=== PATIENT | female | born 1985 | race Caucasian/White ===

== ENCOUNTER 2018-11-05 00:57 | Inpatient (IN) | payer MEDICAID, SELFPAY ==
[~2018-11-05] VITALS: Ht 162.6 cm; Wt 96.5 kg
[2018-11-05 01:57] LABS: HEMATOCRIT 43.7 % (36.0-47.0); HEMOGLOBIN 14.6 g/dl (12.0-15.5); MEAN CORPUSCULAR HGB CONC 33.4 g/dl (32.0-36.5); MEAN CORPUSCULAR VOLUME 89.9 fl (80.0-96.0); PLATELET COUNT, AUTOMATED 253 10^3/uL (150-450); RED BLOOD COUNT 4.86 10^6/uL (4.00-5.40); WHITE BLOOD COUNT 11.2 10^3/uL (4.0-10.0)
[2018-11-05 02:07] LABS: HCG, SERUM QUALITATIVE NEGATIVE (NEGATIVE)
[2018-11-05 02:30] LABS: ACETAMINOPHEN LEVEL < 2.0 UG/ML (10.0-30.0); ALT/SGPT 27 U/L (12-78); BILIRUBIN,DIRECT 0.2 MG/DL (0.0-0.2); BILIRUBIN,TOTAL 0.4 MG/DL (0.2-1.0); BLOOD UREA NITROGEN 13 MG/DL (7-18); CALCIUM LEVEL 8.9 MG/DL (8.5-10.1); CARBON DIOXIDE LEVEL 26 MEQ/L (21-32); CHLORIDE LEVEL 107 MEQ/L (98-107); CREATININE FOR GFR 1.02 MG/DL (0.55-1.30); ETHYL ALCOHOL (ETHANOL) < 0.003 % (0.000-0.010); GLOMERULAR FILTRATION RATE > 60.0 (>60); GLUCOSE, FASTING 94 MG/DL (70-100); SALICYLATE LEVEL < 1.7 MG/DL (5.0-30.0); SODIUM LEVEL 142 MEQ/L (136-145); TOTAL PROTEIN 7.6 GM/DL (6.4-8.2)
[2018-11-05] MEDS ORDERED: chlorproMAZINE 25 MG TAB (Q0161) PO ONE (02:45)
[2018-11-05 02:56] LABS: AMPHETAMINES LEVEL URINE POSITIVE (NEGATIVE); BARBITURATES URINE NEGATIVE (NEGATIVE); BENZODIAZEPINES URINE NEGATIVE (NEGATIVE); CANNABINOIDS URINE POSITIVE (NEGATIVE); COCAINE METABOLITE URINE NEGATIVE (NEGATIVE); METHADONE URINE NEGATIVE (NEGATIVE); OPIATES URINE NEGATIVE (NEGATIVE); PHENCYCLIDINE URINE NEGATIVE (NEGATIVE)
[2018-11-05] MEDS ORDERED: NICOTINE 21MG/24HR 1 EA TRANSDERMAL TD SCH (09:00)
[2018-11-05] MEDS ORDERED: ACETAMINOPHEN TAB 650MG DOSE (2X325MG) PO PRN (13:00)
[2018-11-05] MEDS ORDERED: MOM 30ML SUSPENSION UDC PO PRN (13:00)
[2018-11-05] MEDS ORDERED: traZODone 50 MG TAB PO PRN (13:00)
[2018-11-05] MEDS ORDERED: MAALOX 30 ML SUSP *UDC PO PRN (13:00)
[2018-11-05] MEDS ORDERED: LORazepam 1 MG TAB PO PRN (13:00)
[2018-11-05] MEDS ORDERED: OLANZapine ORAL DISINTEGRATING TAB 5MG PO PRN (13:00)
--- NOTE | 2018-11-05 13:46 | ECGEPIP ---
Stationary ECG Study [facility] - ED Test Date: 2018-11-05 Pat Name: SHANTEL QUESADA Department: Room: - Gender: F Care Associate: alisia : 1985 Requested By: CHAVA SANCHEZ Order Number: [id number] Reading MD: Shaylee Torres Measurements Intervals [place] Rate: 84 P: 32 [place]: 138 QRS: 57 QRSD: 87 T: 31 QT: 346 QTc: 410 Interpretive Statements SINUS RHYTHM NO PRIOR FOR COMPARISON Electronically Signed On 11-05-2018 13:46:04 EST by Shaylee Torres
[2018-11-05 13:47] VITALS: BP 121/72
[2018-11-05 18:00] VITALS: BP 120/72
[2018-11-06 06:31] VITALS: BP 122/58
[2018-11-06] MEDS ORDERED: INFLUENZA QUADRIVALENT PF VACCINE 0.5ML SYRINGE (90686) IM ONE (09:00)
--- NOTE | 2018-11-06 09:28 | HPEPDOC ---
[facility] Medical History & Physical Date of Admission Nov 05, 2018 History and Physical PCP: None ATTENDING: Dr. Caro Mcknight HPI: 33 yo F admitted to [facility] for unspecified depressive disorder, being me dically examined today. The patient is anxious and agitated during exam, rapid pressured speech. The patient is noted to be poor historian. She states she was recently treated for pneumonia. She does not recall what medication she took her when she finished it. She states she is concerned regarding her thyroid function. She states she has a mild sore throat. She denies cough, sputum, fever, chills, rhinorrhea. Denies any weakness, fatigue, JOHNS, CP, SOB, cough, palpitations, abdominal pain, N/V/D or changes in bowel or bladder habits. PMHx: Anxiety Depression ADHD Self-harm History of SI Substance use Alcohol use PSHX: Denies SOCHX: Resides in: [place] Marital Status: Single Kids:3 Employment: Unemployed Tobacco use: Smoker ETOH: Denies Illicit Drugs: Recently using methamphetamine and marijuana and history of heroin IV Drug Use: Recently using methamphetamine. History of heroin however states she hasn't used in 4 months. Tattoos done unprofessionally: Denies FAMHX: Children: 3 Alive, well Unexpected deaths due to medical reasons: None. ROS: As noted in HPI, otherwise 11pt ROS of systems reviewed and remarkable only for LMP 10/15/18. PE: GEN: 33 yo F, appears stated age. Appears unkept and disheveled. No acute distress. Alert and oriented x 3. Rapid pressured speech, anxious throughout exam. HEENT: Normocephalic, atraumatic. Pupils are equal, round, and reactive to light. Extraocular movements are intact. No nystagmus appreciated. Sclera are nonicteric. Conjunctiva without injection. Nose midline. Nasal turbinates without bogginess. EACs both patent BL. TMs both visualized and lackey with good cone of light, no bulging or erythema. No facial asymmetry. Moist mucous membranes. Dentition fair. Pharynx pink and moist, no exudate. Neck supple, trachea midline. No lymphadenopathy or thyromegaly appreciated. CHEST: Regular rate and rhythm, +S1, +S2 LUNGS: Clear to auscultation bilaterally. No wheezes, rales, or rhonchi. Breathing appears symmetric and easy. Patient is speaking in full sentences. No accessory muscle use. ABD: Round, soft, non-tender, non-distended. +Bowel sounds throughout. No rebound or guarding. No costovertebral angle tenderness. EXT: Pulses 2+ bilaterally dorsalis pedis and radial. No lower extremity edema appreciated. SKIN: [place], dry, warm. Capillary refill <2sec. No rashes. No skin lesions noted. NEURO: Alert and oriented x 3. Cranial nerves III-XII are intact. No focal deficits appreciated. EKG: SINUS RHYTHM NO PRIOR FOR COMPARISON Electronically Signed On 11-05-2018 13:46:04 EST by Shaylee Torres DD: Shalyee Torres MD 11/05/18 0153 A&P: 33 yo F admitted to [facility] for unspecified depressive disorder, 1. Psych. Plan per Psychiatry. EKG on file. 2. Nicotine dependence. Patch available. 3. TSH is noted to be within normal limits. 4. Follow up. No Primary Care Provider. Will attempt to establish PCP on discharge. 5. Substance use. Management per psychiatry. Continue with MVI, Thiamine, and Folic Acid supplementation. 6. IVDU. HIV and hepatitis screening requested. 7. Leukocytosis. Patient is afebrile. Possible stress response. Recheck CBC. Chest x-ray as below. 8. Patient reports history of Recent pneumonia. Patient states she was recently treated with pneumonia. She does not recall what medication she has taken or when she completed her. She does not report any cough, sputum, fever, chills, chest discomfort, rhinorrhea. She states she has a mild sore throat. The patient is noted to be afebrile. WBC 11.2. Will recheck CBC. Check chest x-ray. Cepacol as needed. Monitor. 9. Staff member Celine WOO present throughout exam. Vital Signs Vital Signs Date Time Temp Pulse Resp B/P (MAP) Pulse Ox O2 Delivery O2 Flow Rate FiO2 11/06/18 06:31 97.9 73 16 122/58 (79) 11/05/18 13:07 98 Room Air Laboratory Data Labs 24H Item Value Date Time White Blood Count 11.2 10^3/uL H 11/05/18 0109 Red Blood Count 4.86 10^6/uL 11/05/18 0109 Hemoglobin 14.6 g/dl 11/05/189 Hematocrit 43.7 % 11/05/18108 Mean Corpuscular Volume 89.9 fl 11/05/18108 Mean Corpuscular Hemoglobin 30.0 pg 11/05/18108 Mean Corpuscular Hemoglobin Concent 33.4 g/dl 11/05/18108 Red Cell Distribution Width 13.2 % 11/05/18108 Platelet Count 253 10^3/uL 11/05/18 0109 Sodium Level 142 MEQ/L 11/05/18 0109 Potassium Level 4.0 MEQ/L 11/05/18 010 Chloride Level 107 MEQ/L 11/05/18 010 Carbon Dioxide Level 26 MEQ/L 11/05/18 010 Anion Gap 9 MEQ/L 11/05/18 010 Blood Urea Nitrogen 13 MG/DL 11/05/18 010 Creatinine 1.02 MG/DL 11/05/18108 Glomerular Filtration Rate > 60.0 11/05/18108 Fasting Glucose 94 MG/DL 11/05/18 0109 Calcium Level 8.9 MG/DL 11/05/18 0109 Total Bilirubin 0.4 MG/DL 11/05/18 0109 Direct Bilirubin 0.2 MG/DL 11/05/18 0109 Aspartate Amino Transf (AST/SGOT) 29 U/L 11/05/18 0109 Alanine Aminotransferase (ALT/SGPT) 27 U/L 11/05/18 010 Alkaline Phosphatase 76 U/L 11/05/18 0109 Total Protein 7.6 GM/DL 11/05/18 0109 Albumin 4.0 GM/DL 11/05/18 010 Albumin/Globulin Ratio 1.11 11/05/18 010 Thyroid Stimulating Hormone (TSH) 1.050 uIU/ML 11/05/18 0109 Salicylates Level < 1.7 MG/DL L 11/05/18108 Urine Opiates Screen NEGATIVE 11/05/18 0218 Urine Methadone Screen NEGATIVE 11/05/18 0218 Acetaminophen Level < 2.0 UG/ML L 11/05/18108 Urine Barbiturates Screen NEGATIVE 11/05/18 0218 Urine Phencyclidine Screen NEGATIVE 11/05/188 Urine Amphetamines Screen POSITIVE H 1/7/19 0218 Urine Benzodiazepines Screen NEGATIVE 11/05/18 0218 Urine Cocaine Metabolite Screen NEGATIVE 11/05/18 0218 Urine Cannabinoids Screen POSITIVE H 11/05/188 Ethyl Alcohol Level < 0.003 % 11/05/18 0109 Home Medications No Active Prescriptions or Reported Meds Allergies Coded Allergies: No Known Allergies (Unverified , 11/05/18) Elisa Moctezuma Nov 06, 2018 09:28
[2018-11-06] MEDS ORDERED: CEPACOL LOZENGE PO PRN (09:30)
[2018-11-06 10:12] LABS: HEMATOCRIT 41.1 % (36.0-47.0); HEMOGLOBIN 13.6 g/dl (12.0-15.5); MEAN CORPUSCULAR HEMOGLOBIN 30.4 pg (27.0-33.0); MEAN CORPUSCULAR HGB CONC 33.1 g/dl (32.0-36.5); MEAN CORPUSCULAR VOLUME 91.7 fl (80.0-96.0); PLATELET COUNT, AUTOMATED 240 10^3/uL (150-450); RED BLOOD COUNT 4.48 10^6/uL (4.00-5.40); WHITE BLOOD COUNT 7.6 10^3/uL (4.0-10.0)
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
[2018-11-06] MEDS ORDERED: FLUoxetine 10 MG CAP PO ONE (12:00)
[2018-11-06] MEDS ORDERED: diphenhydrAMINE 25 MG CAP PO PRN (12:00)
--- NOTE | 2018-11-06 13:38 | REP ---
Chest x-ray: Two views. History: Recent pneumonia . Comparison study: No comparison study . Findings: The lungs are well inflated and free of infiltrate. The pleural angles are sharp. The heart size is normal. Pulmonary vasculature is not increased. No significant bony abnormality is seen. There is a mild S-shaped thoracic scoliotic curve. Impression: Minimal thoracic curvature, otherwise negative chest x-ray. Electronically Signed by Moises Luna MD 11/06/2018 01:29 P
[2018-11-06 18:00] VITALS: BP 115/63
[2018-11-07 06:41] VITALS: BP 115/58
[2018-11-07] MEDS: FLUoxetine 10 MG CAP PO SCH (08:57)
--- NOTE | 2018-11-07 10:05 | MHIPNPDOC ---
[facility] Progress Note Progress Note DATE OF SERVICE: 11/07/18 HISTORY: Patient is a 33 -year-old , female, with no previous psych history who was admitted after her 18y/o daughter called PD stating that the pt told her she was suicidal over the phone. In the ED, pt endorsed increasing depression and feeling hopeless for several months due to multiple psychosocial stressors cuasing her to relapse on a 3 day binge of methamphetamine (smoke, snort, inject). 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 When it came time for her kids to live with her, they refused, telling her they wanted to stay with the sister which causing the pt to feel depressed and hopeless. She impulsively quite her job, gave her apt away, and had been staying with a friend until she was kicked out recently. [facility] to the weekend and asked if she wanted to get high. Stated in ED that she was first using meth to get high but then in later turned into use to kill herself. Ran out of meth Monday night. Pt seen today and states "I have a problem with depression and I told my daughter I wanted to kill myself." Pt states that she feels irritable b/c she has a headache and doesn't feel nursing is being timely enough with getting her tylenol. Denies SI/HI, hallucinations, delusions. Agreeable to starting antidepressant, prozac, today. (risks/benefits discussed) Feels safe here. VITAL SIGNS: See below. NEW TEST RESULTS: See below. CURRENT MEDICATIONS: See below. MENTAL STATUS EXAMINATION: General Appearance: disheveled, appears stated age, hospital scrubs/clothing Build: overweight Demeanor: average Eye Contact: fair Activity: average with mild anxiety and irritability Behavior: cooperative Speech: clear, spontaneous, normal volume, reg/rate,rhythm,volume Mood: less depressed and anxious, irritable Mood "better" Affect: improved range, less depressed and anxious Thought Process: logical/linear, depressed, intact Thought Content (Delusions): none reported, denies SI, HI, AVH Thought Content (Other): none reported, appropriate Thought Content (Aggressive): none reported Perception (Hallucinations): none reported Perception (Other): none reported Cognition (Impairment of): none reported Cognition(Intelligence Est.): average Oriented: Awake, Alert, Oriented times three Insight: fair Judgment: Fair Psychosis: Denies DIAGNOSES: Depression unspecified R/o substance induced depression secondary to methamphetamine methamphetamine/amphetamine use d/o ASSESSMENT:Pt seen and states that her mood is better. She has improved range with mild anxiety mostly over the prospect of having housing upon d/c "that cause me to be panicked," and is irritable at times mostly when not getting what she wants immediately like breakfast tray not being right and demanding OJ. Refused to be seen until tray fixed and ate. States she's being social on the milieu and attending groups which is beneficial. States she slept well last night. Feels she is tolerating her prozac and is waiting for beneficial. She denies insomnia, SI/HI, hallucinations, delusions. Pt feels safe here. MANAGEMENT PLAN: continue current plan. TLS housing meeting tomorrow. Medications: prozac 10mg daily benadryl 25mg q6hr prn congestion TIME SPENT: 30 minutes. Vital Signs Vital Signs Date Time Temp Pulse Resp B/P (MAP) Pulse Ox O2 Delivery O2 Flow Rate FiO2 11/07/18 06:41 98.6 58 18 115/58 (77) 11/05/18 13:07 98 Room Air Current Medications Current Medications Acetaminophen (Tylenol Tab) 650 mg Q6HP PRN PO HEADACHE or DISCOMFORT Last administered on 11/06/18at 11:50; Start 11/05/18 at 13:00 Al Hydrox/Mg Hydrox/Simethicone (Mylanta) 30 ml Q4HP PRN PO HEARTBURN/INDIGESTION; Start 11/05/18 at 13:00 Cetylpyridinium Chloride (Cepacol) 1 sujey Q2HP PRN PO SORE THROAT; Start 11/06/18 at 09:30 Diphenhydramine HCl (Benadryl) 25 mg Q4HP PRN PO CONGESTION Last administered on 11/06/18at 21:16; Start 11/06/18 at 12:00 Fluoxetine HCl (PROzac) 10 mg DAILY PO Last administered on 11/07/18at 08:57; Start 1/9/19 at 09:00 Home Med (Med Rec Complete!) ASDIRECTED XX ; Start 11/05/18 at 10:30; Stop 11/05/18 at 10:30; Status DC Lorazepam (Ativan) 2 mg Q6HP PRN PO ANXIETY/AGITATION; Start 11/05/18 at 13:00 Magnesium Hydroxide (Milk Of Magnesia) 30 ml DAILYPRN PRN PO CONSTIPATION; Start 11/05/18 at 13:00 Nicotine (Nicoderm Cq 21mg) 1 patch DAILY TD ; Start 11/05/18 at 09:00; Stop 11/05/18 at 15:46; Status DC Olanzapine (ZyPREXA ZYDIS) 10 mg Q6HP PRN PO ANXIETY/AGITATION; Start 11/05/18 at 13:00 Trazodone HCl (Desyrel) 50 mg QHSP PRN PO INSOMNIA; Start 11/05/18 at 13:00 Allergies Coded Allergies: No Known Allergies (Unverified , 11/05/18) KHUSHI ALFARO DO Nov 07, 2018 9:55 am
[2018-11-07 18:00] VITALS: BP 130/67
[2018-11-08 07:19] VITALS: BP 103/52
[2018-11-08] MEDS: FLUoxetine 10 MG CAP PO SCH (08:42)
--- NOTE | 2018-11-08 08:54 | MHIPNPDOC ---
[facility] Progress Note Progress Note DATE OF SERVICE: 11/08/18 HISTORY: Patient is a 33 -year-old , female, with no previous psych history who was admitted after her 18y/o daughter called PD stating that the pt told her she was suicidal over the phone. In the ED, pt endorsed increasing depression and feeling hopeless for several months due to multiple psychosocial stressors cuasing her to relapse on a 3 day binge of methamphetamine (smoke, snort, inject). 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 When it came time for her kids to live with her, they refused, telling her they wanted to stay with the sister which causing the pt to feel depressed and hopeless. She impulsively quite her job, gave her apt away, and had been staying with a friend until she was kicked out recently. She stated that a fri end called her prior to the weekend and asked if she wanted to get high. Stated in ED that she was first using meth to get high but then in later turned into use to kill herself. Ran out of meth Monday night. Pt seen today and states "I have a problem with depression and I told my daughter I wanted to kill myself." Pt states that she feels irritable b/c she has a headache and doesn't feel nursing is being timely enough with getting her tylenol. Denies SI/HI, hallucinations, delusions. Agreeable to starting antidepressant, prozac, today. (risks/benefits discussed) Feels safe here. VITAL SIGNS: See below. NEW TEST RESULTS: See below. CURRENT MEDICATIONS: See below. MENTAL STATUS EXAMINATION: General Appearance: clean, appears stated age, own clothing Build: overweight Demeanor: average, cooperative, pleasant Eye Contact: fair Activity: average Behavior: cooperative Speech: clear, spontaneous, normal volume, reg/rate,rhythm,volume Mood: less depressed and anxious Mood "better" Affect: improved range, less depressed and anxious Thought Process: logical/linear, less depressed, intact Thought Content (Delusions): none reported, denies SI, HI, AVH Thought Content (Other): none reported, appropriate Thought Content (Aggressive): none reported Perception (Hallucinations): none reported Perception (Other): none reported Cognition (Impairment of): none reported Cognition(Intelligence Est.): average Oriented: Awake, Alert, Oriented times three Insight: fair Judgment: Fair Psychosis: Denies DIAGNOSES: Depression unspecified R/o substance induced depression secondary to methamphetamine methamphetamine/amphetamine use d/o ASSESSMENT:Pt seen and states that her mood is alright. States she took ativan for anxiety yesterday that was helpful. Trazodone very beneficial to sleep. Spoke to pt that she should not take that regularly and pt requesting it be removed from med list. Agreeable to atarax prn anxiety. . She has improved range and anxiety. States she's being social on the milieu and attending groups which is beneficial. States she slept well last night. Feels she is tolerating her prozac and is waiting for beneficial, agreeable to increase for more therapeutic effect. She denies insomnia, SI/HI, hallucinations, delusions. Pt feels safe here. MANAGEMENT PLAN: continue current plan. TLS housing meeting tomorrow. Medications: prozac 20mg daily benadryl 25mg q6hr prn congestion atarax 25mg q6hr prn anxiety trazodone 50mg qhs prn insomnia TIME SPENT: 30 minutes. Vital Signs Vital Signs Date Time Temp Pulse Resp B/P (MAP) Pulse Ox O2 Delivery O2 Flow Rate FiO2 11/08/18 07:19 97.7 66 16 103/52 (69) 11/05/18 13:07 98 Room Air Current Medications Current Medications Acetaminophen (Tylenol Tab) 650 mg Q6HP PRN PO HEADACHE or DISCOMFORT Last administered on 11/06/18at 11:50; Start 11/05/18 at 13:00 Al Hydrox/Mg Hydrox/Simethicone (Mylanta) 30 ml Q4HP PRN PO HEARTBURN/INDIGESTION; Start 11/05/18 at 13:00 Cetylpyridinium Chloride (Cepacol) 1 sujey Q2HP PRN PO SORE THROAT; Start 11/06/18 at 09:30 Diphenhydramine HCl (Benadryl) 25 mg Q4HP PRN PO CONGESTION Last administered on 11/06/18at 21:16; Start 11/06/18 at 12:00 Fluoxetine HCl (PROzac) 10 mg DAILY PO Last administered on 11/08/18at 08:42; Start 11/07/18 at 09:00 Home Med (Med Rec Complete!) ASDIRECTED XX ; Start 11/05/18 at 10:30; Stop 11/05/18 at 10:30; Status DC Lorazepam (Ativan) 2 mg Q6HP PRN PO ANXIETY/AGITATION Last administered on at 21:08; Start 11/05/18 at 13:00 Magnesium Hydroxide (Milk Of Magnesia) 30 ml DAILYPRN PRN PO CONSTIPATION; Start 11/05/18 at 13:00 Nicotine (Nicoderm Cq 21mg) 1 patch DAILY TD ; Start 11/05/18 at 09:00; Stop 11/05/18 at 15:46; Status DC Olanzapine (ZyPREXA ZYDIS) 10 mg Q6HP PRN PO ANXIETY/AGITATION; Start 11/05/18 at 13:00 Trazodone HCl (Desyrel) 50 mg QHSP PRN PO INSOMNIA Last administered on 11/07/18at 23:01; Start 11/05/18 at 13:00 Allergies Coded Allergies: No Known Allergies (Unverified , 11/05/18) KHUSHI ALFARO DO Nov 08, 2018 8:54 am
[2018-11-08] MEDS ORDERED: FLUoxetine 10 MG CAP PO ONE (09:00)
[2018-11-08] MEDS ORDERED: FLUoxetine 20 MG CAP PO SCH (09:00)
[2018-11-08] MEDS ORDERED: hydrOXYzine 25 MG TAB PO PRN (09:00)
[2018-11-08 18:00] VITALS: BP 119/57
[2018-11-09 06:00] VITALS: BP 120/72
--- NOTE | 2018-11-09 08:43 | MHIPNPDOC ---
[facility] Progress Note Progress Note DATE OF SERVICE: 11/09/18 HISTORY: Patient is a 33 -year-old , female, with no previous psych history who was admitted after her 18y/o daughter called PD stating that the pt told her she was suicidal over the phone. In the ED, pt endorsed increasing depression and feeling hopeless for several months due to multiple psychosocial stressors cuasing her to relapse on a 3 day binge of methamphetamine (smoke, snort, inject). 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 When it came time for her kids to live with her, they refused, telling her they wanted to stay with the sister which causing the pt to feel depressed and hopeless. She impulsively quite her job, gave her apt away, and had been staying with a friend until she was kicked out recently. She stated that a fri end called her prior to the weekend and asked if she wanted to get high. Stated in ED that she was first using meth to get high but then in later turned into use to kill herself. Ran out of meth Monday night. Pt seen today and states "I have a problem with depression and I told my daughter I wanted to kill myself." Pt states that she feels irritable b/c she has a headache and doesn't feel nursing is being timely enough with getting her tylenol. Denies SI/HI, hallucinations, delusions. Agreeable to starting antidepressant, prozac, today. (risks/benefits discussed) Feels safe here. VITAL SIGNS: See below. NEW TEST RESULTS: See below. CURRENT MEDICATIONS: See below. MENTAL STATUS EXAMINATION: General Appearance: clean, appears stated age, own clothing Build: overweight Demeanor: average, cooperative, pleasant Eye Contact: fair Activity: average Behavior: cooperative Speech: clear, spontaneous, normal volume, reg/rate,rhythm,volume Mood: less depressed and anxious Mood "I slept all day yesterday" Affect: improved range, less depressed and anxious Thought Process: logical/linear, less depressed, intact Thought Content (Delusions): none reported, denies SI, HI, AVH Thought Content (Other): none reported, appropriate Thought Content (Aggressive): none reported Perception (Hallucinations): none reported Perception (Other): none reported Cognition (Impairment of): none reported Cognition(Intelligence Est.): average Oriented: Awake, Alert, Oriented times three Insight: fair Judgment: Fair Psychosis: Denies DIAGNOSES: Depression unspecified R/o substance induced depression secondary to methamphetamine methamphetamine/amphetamine use d/o ASSESSMENT:Pt seen and states that the increase in prozac was too much for her b/c it caused her to sleep most of the day yesterday. Asking to decrease dose and stay over the weekend to see how the medicine affects her. Otherwise, states she's doing well. Trazodone very beneficial to sleep. Spoke to pt that she should not take that regularly and pt requesting it be removed from med list. Atarax prn anxiety is beneficial . She has improved mood range and anxiety. States she's being social on the milieu and attending groups which is beneficial. States she slept well last night. Feels she is tolerating her p rozac and is feels it's beneficial. She denies insomnia, SI/HI, hallucinations, delusions. Pt feels safe here. MANAGEMENT PLAN: continue current plan. [facility] housing meeting tomorrow. Medications: prozac 10mg daily benadryl 25mg q6hr prn congestion atarax 25mg q6hr prn anxiety trazodone 50mg qhs prn insomnia TIME SPENT: 30 minutes. Vital Signs Vital Signs Date Time Temp Pulse Resp B/P (MAP) Pulse Ox O2 Delivery O2 Flow Rate FiO2 11/09/18 06:00 97.8 67 16 120/72 (88) 11/05/18 13:07 98 Room Air Current Medications Current Medications Acetaminophen (Tylenol Tab) 650 mg Q6HP PRN PO HEADACHE or DISCOMFORT Last administered on 11/06/18at 11:50; Start 11/05/18 at 13:00 Al Hydrox/Mg Hydrox/Simethicone (Mylanta) 30 ml Q4HP PRN PO HEARTBURN/INDIGESTION; Start 11/05/18 at 13:00 Cetylpyridinium Chloride (Cepacol) 1 sujey Q2HP PRN PO SORE THROAT; Start 11/06/18 at 09:30 Diphenhydramine HCl (Benadryl) 25 mg Q4HP PRN PO CONGESTION Last administered on 11/06/18at 21:16; Start 11/06/18 at 12:00 Fluoxetine HCl (PROzac) 10 mg DAILY PO Last administered on 11/08/18at 08:42; Start 11/07/18 at 09:00; Stop 11/08/18 at 08:47; Status DC Fluoxetine HCl (PROzac) 20 mg DAILY PO ; Start 11/08/18 at 09:00 Home Med (Med Rec Complete!) ASDIRECTED XX ; Start 11/05/18 at 10:30; Stop 11/05/18 at 10:30; Status DC Hydroxyzine HCl (Atarax) 25 mg Q6HP PRN PO ANXIETY; Start 11/08/18 at 09:00 Lorazepam (Ativan) 2 mg Q6HP PRN PO ANXIETY/AGITATION Last administered on 11/07/18at 21:08; Start 11/05/18 at 13:00; Stop 11/08/18 at 08:47; Status DC Magnesium Hydroxide (Milk Of Magnesia) 30 ml DAILYPRN PRN PO CONSTIPATION; Start 11/05/18 at 13:00 Nicotine (Nicoderm Cq 21mg) 1 patch DAILY TD ; Start 11/05/18 at 09:00; Stop 11/05/18 at 15:46; Status DC Olanzapine (ZyPREXA ZYDIS) 10 mg Q6HP PRN PO ANXIETY/AGITATION; Start 11/05/18 at 13:00 Trazodone HCl (Desyrel) 50 mg QHSP PRN PO INSOMNIA Last administered on 11/07/18at 23:01; Start 11/05/18 at 13:00 Allergies Coded Allergies: No Known Allergies (Unverified , 11/05/18) KHUSHI ALFARO DO Nov 09, 2018 8:43 am
[2018-11-09] MEDS: FLUoxetine 10 MG CAP PO SCH (08:55)
[2018-11-09 18:00] VITALS: BP 119/74
[2018-11-10 06:00] VITALS: BP 230/56
[2018-11-10] MEDS: FLUoxetine 10 MG CAP PO SCH (09:06)
[2018-11-10 18:00] VITALS: BP 112/70
[2018-11-10] MEDS: IBUPROFEN 400 MG TAB PO PRN (21:45)
[2018-11-11 06:00] VITALS: BP 91/46
[2018-11-11] MEDS: FLUoxetine 10 MG CAP PO SCH (09:04)
[2018-11-11 18:00] VITALS: BP 138/69
[2018-11-11] MEDS: IBUPROFEN 400 MG TAB PO PRN (21:22)
[2018-11-12 06:18] VITALS: BP 126/63
[2018-11-12] MEDS: FLUoxetine 10 MG CAP PO SCH (07:43)
--- NOTE | 2018-11-12 08:42 | MHDSPDOC ---
[facility] Discharge Summary Discharge Summary DATE OF ADMISSION: Nov 05, 2018 at 12:53 pm DATE OF DISCHARGE: Nov 12, 2018 DISCHARGE DIAGNOSES: Depression unspecified R/o substance induced depression secondary to methamphetamine methamphetamine/amphetamine use d/o REASON FOR ADMISSION:Patient is a 33 -year-old , female, with no previous psych history who was admitted after her 18y/o daughter called PD stating that the pt told her she was suicidal over the phone. In the ED, pt endorsed increasing depression and feeling hopeless for several months due to multiple psychosocial stressors cuasing her to relapse on a 3 day binge of methamphetamine (smoke, snort, inject). 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 When it came time for her kids to live with her, they refused, telling her they wanted to stay with the sister which causing the pt to feel depressed and hopeless. She impulsively quite her job, gave her apt away, and h ad been staying with a friend until she was kicked out recently. She stated that a friend called her prior to the weekend and asked if she wanted to get high. Stated in ED that she was first using meth to get high but then in later turned into use to kill herself. Ran out of meth Monday night. Pt seen today and states "I have a problem with depression and I told my daughter I wanted to kill myself." Pt states that she feels irritable b/c she has a headache and doesn't feel nursing is being timely enough with getting her tylenol. Denies SI/HI, hallucinations, delusions. Agreeable to starting antidepressant, prozac, today. (risks/benefits discussed) Feels safe here. CONSULTANTS INVOLVED: none TREATMENT AND PROGRESS ON THE UNIT : Pt was admitted to [facility], seen for psychiatric assessment and started on prozac 10mg daily for mood and anxiety. She was provided benadryl 25mg qghr prn congestion, vistaril 25mg q6hr prn anxiety, and trazodone 50mg qhs prn insomnia. Pt found her medications beneficial and tolerated them well. She attended groups daily during her stay. Her symptoms improved with treatment. On day of discharge she denied depression, anxiety, insomnia, SI/HI, hallucinations, delusions. She was discharged to [facility] for housing aid with follow-up at [facility].. She felt safe for discharge. DISCHARGE ASSESSMENT: Pt seen and states she's doing very well and looking forward to being discharged to [facility] for housing aid today. States she's tolerating her prozac and finding it beneficial. Denies anxiety and states atarax is helpful. Trazodone very beneficial to sleep. States she's being social on the milieu and attending groups which is beneficial. States she slept well last night. Feels she is tolerating her prozac and is feels it's beneficial. She denies depression, anxiety, insomnia, SI/HI, hallucinations, delusions. Pt feels safe here. MENTAL STATUS EXAMINATION ON DISCHARGE: General Appearance: clean, appears stated age, own clothing Build: overweight Demeanor: average, cooperative, pleasant Eye Contact: good Activity: average Behavior: cooperative Speech: clear, spontaneous, normal volume, reg/rate,rhythm,volume Mood: euthymic, full Mood "good" Affect: euthymic, full, bright Thought Process: logical/linear, less depressed, intact Thought Content (Delusions): none reported, denies SI, HI, AVH Thought Content (Other): none reported, appropriate Thought Content (Aggressive): none reported Perception (Hallucinations): none reported Perception (Other): none reported Cognition (Impairment of): none reported Cognition(Intelligence Est.): average Oriented: Awake, Alert, Oriented times three Insight: good Judgment: good Psychosis: Denies MEDICATIONS ON DISCHARGE: prozac 10mg daily atarax 25mg q6hr prn anxiety trazodone 50mg qhs prn insomnia PLAN/FOLLOWUP ARRANGEMENTS: D/c home with follow-up at [facility]. The amount of time spent in the coordination of care for this patient was approximately 30 minutes. Vital Signs/I&Os Vital Signs Date Time Temp Pulse Resp B/P (MAP) Pulse Ox O2 Delivery O2 Flow Rate FiO2 11/12/18 06:18 96.8 63 14 126/63 (84) Room Air Medications No Active Prescriptions or Reported Meds Allergies Coded Allergies: No Known Allergies (Unverified , 11/05/18) KHUSHI ALFARO DO Nov 12, 2018 8:42 am
[2018-11-12] MEDS ORDERED: PROZ10CA7 PO (08:46)
[2018-11-12] MEDS ORDERED: HYDR-3363 PO (08:46)
[2018-11-12] MEDS ORDERED: TRAZO50TA PO (08:46)
== END 2018-11-12 11:10 | disposition home or self-care (01) | DRG 754 ==
LOC: M ED 00:57 → M ED INP 12:53 → M PSY 13:35
PROVIDERS: ADMIT Psychiatry & Neurology Psychiatry; ATTEND Psychiatry & Neurology Psychiatry
DX: F32.9 Major depressive disorder, single episode, unspecified (principal); F15.14 Other stimulant abuse with stimulant-induced mood disorder; Z91.5 Personal history of self-harm; F17.290 Nicotine dependence, other tobacco product, uncomplicated

== ENCOUNTER 2018-12-09 17:49 | Emergency (ER) | payer MEDICAID, OTHER ==
[~2018-12-09] VITALS: Ht 170.2 cm; Wt 80.9 kg
[2018-12-09 17:49] VITALS: BP_DIAS 63
[~2018-12-09 17:49] MED LIST: HYDR-3363 PO; PROZ10CA7 PO; TRAZO50TA PO
[2018-12-09] MEDS ORDERED: IBUPROFEN 800 MG TAB PO ONE (20:45)
[2018-12-09] MEDS ORDERED: LIDOCAINE 5% (LIDODERM) PATCH TD ONE (20:45)
[2018-12-09] MEDS ORDERED: PERCOCET 5MG/325MG TAB PO ONE (20:45)
[2018-12-09] MEDS ORDERED: IBUP1TAB7 PO (20:50)
[2018-12-09] MEDS ORDERED: ENDO7.5T11 PO (20:50)
[2018-12-09] MEDS ORDERED: LIDO1PAD TOP (20:50)
[2018-12-09 20:54] VITALS: BP_SYST 116
[2018-12-09] MEDS ORDERED: **NOTE PATIENT COMMENT** MISC XX SCH (21:00)
== END 2018-12-09 21:00 | disposition home or self-care (01) ==
LOC: M ED 17:49
DX: M54.5 Low back pain (principal); G89.29 Other chronic pain; J45.909 Unspecified asthma, uncomplicated; K21.9 Gastro-esophageal reflux disease without esophagitis; F90.9 Attention-deficit hyperactivity disorder, unspecified type; F17.200 Nicotine dependence, unspecified, uncomplicated; Z79.899 Other long term (current) drug therapy

== ENCOUNTER → 2019-03-20 | Outpatient (CLI) | payer OTHER ==
[~2019-03-20] MED LIST changes: +ENDO7.5T11 PO; +IBUP1TAB7 PO; +LIDO1PAD TOP
[2019-03-20 12:19] LABS: BASO % 0.6 % (0.0-1.0); EOS # 0.1 10^3/uL (0.0-0.50); EOS % 0.8 % (0.0-3.0); HEMATOCRIT 39.6 % (36.0-47.0); HEMOGLOBIN 12.8 g/dl (12.0-15.5); LYMPH # 1.8 10^3/uL (1.5-4.5); LYMPH % 27.5 % (24.0-44.0); MEAN CORPUSCULAR HEMOGLOBIN 30.8 pg (27.0-33.0); MEAN CORPUSCULAR HGB CONC 32.3 g/dl (32.0-36.5); MEAN CORPUSCULAR VOLUME 95.4 fl (80.0-96.0); MONO # 0.4 10^3/uL (0.0-0.8); MONO % 5.4 % (0.0-5.0); NEUTROPHILS # 4.3 10^3/uL (1.8-7.7); NEUTROPHILS % 65.1 % (36.0-66.0); PLATELET COUNT, AUTOMATED 212 10^3/uL (150-450); RED BLOOD COUNT 4.15 10^6/uL (4.00-5.40); WHITE BLOOD COUNT 6.6 10^3/uL (4.0-10.0)
[2019-03-20 12:48] LABS: ALBUMIN 3.4 GM/DL (3.2-5.2); ALT/SGPT 24 U/L (12-78); BILIRUBIN,TOTAL 0.2 MG/DL (0.2-1.0); BLOOD UREA NITROGEN 12 MG/DL (7-18); CALCIUM LEVEL 8.3 MG/DL (8.5-10.1); CARBON DIOXIDE LEVEL 25 MEQ/L (21-32); CHLORIDE LEVEL 112 MEQ/L (98-107); CHOLESTEROL LEVEL 207 MG/DL (<200); CREATININE FOR GFR 0.68 MG/DL (0.55-1.30); FREE T4 0.89 NG/DL (0.76-1.46); GLOMERULAR FILTRATION RATE > 60.0 (>60); GLUCOSE, FASTING 85 MG/DL (70-100); HDL CHOLESTEROL 45 MG/DL (>40); HEPATITIS B SURFACE ANTIGEN NEGATIVE (NEGATIVE); LDL CHOLESTEROL 143 MG/DL (<100); NON-HDL-C 162 MG/DL; POTASSIUM SERUM 3.9 MEQ/L (3.5-5.1); SODIUM LEVEL 143 MEQ/L (136-145); THYROID STIMULATING HORMONE 0.718 uIU/ML (0.358-3.740); TOTAL PROTEIN 7.1 GM/DL (6.4-8.2); TRIGLYCERIDES LEVEL 94 MG/DL (<150)
[2019-03-20 13:14] LABS: HEPATITIS C VIRUS ABY INDEX 0.1 INDEX (<0.8)
[2019-03-20 13:15] LABS: HEPATITIS B CORE ANTIBODY IGM NEGATIVE (NEGATIVE)
[2019-03-20 13:16] LABS: HEPATITIS A ANTIBODY IGM NEGATIVE (NEGATIVE)
== END ==
LOC: M WUC 09:43
PROVIDERS: ATTEND Physician Assistant Medical
DX: R53.83 Other fatigue (principal); I10 Essential (primary) hypertension; Z13.220 Encounter for screening for lipoid disorders

== ENCOUNTER → 2019-07-16 | Outpatient (REF) | payer OTHER ==
[~2019-07-16] MED LIST changes: +TRAZ1TAB10 PO; -TRAZO50TA PO
[2019-07-16 18:13] LABS: APPEARANCE, URINE CLOUDY (CLEAR); BACTERIA, URINE AUTO NEGATIVE (NEGATIVE); BILIRUBIN, URINE AUTO NEGATIVE (NEGATIVE); BLOOD, URINE BLOOD NEGATIVE (NEGATIVE); COLOR, URINE YELLOW (YELLOW); GLUCOSE, URINE (UA) AUTO NEGATIVE (NEGATIVE); KETONE, URINE AUTO NEGATIVE (NEGATIVE); LEUKOCYTE ESTERASE, URINE AUTO NEGATIVE (NEGATIVE); MUCUS, URINE SMALL (NEGATIVE); NITRITE, URINE AUTO POSITIVE (NEGATIVE); PROTEIN, URINE AUTO NEGATIVE (NEGATIVE); RBC, URINE AUTO 0 /HPF (0-3); SQUAMOUS EPITHELIAL CELL UR AU 6 /HPF (0-6); UROBILINOGEN, URINE AUTO 0.2 mg/dL (0.0-2.0); WBC, URINE AUTO 1 /HPF (0-3)
== END ==
LOC: M LAB REF 15:17
PROVIDERS: ATTEND Physician Assistant Medical
DX: N39.0 Urinary tract infection, site not specified (principal)

== ENCOUNTER 2019-08-04 10:47 | Emergency (ER) | payer OTHER ==
[~2019-08-04] VITALS: Ht 167.6 cm; Wt 110.6 kg
[2019-08-04] MEDS ORDERED: BENZONATATE 100 MG CAP PO ONE (11:30)
[2019-08-04] MEDS ORDERED: CETIRIZINE (ZyrTEC) 10 MG TAB PO ONE (11:30)
--- NOTE | 2019-08-04 11:34 | REP ---
PA and lateral chest: Comparison is 11/06/2018. The lung de la cruz are clear. The cardiac size is normal. The michelle, mediastinum, and skeletal structures are unremarkable except for mild thoracic scoliosis, unchanged. Impression: Negative PA and lateral chest. There is no interval change. Electronically Signed by Dustin Mauricio MD 08/04/2019 11:26 A
[2019-08-04] MEDS ORDERED: ADV250INH INH (12:10)
[2019-08-04] MEDS ORDERED: BENZ200C70 PO (12:10)
[2019-08-04 12:18] VITALS: BP 124/68
== END 2019-08-04 12:22 | disposition home or self-care (01) ==
LOC: M ED 10:47
DX: J45.909 Unspecified asthma, uncomplicated (principal)

== ENCOUNTER 2019-08-10 21:39 | Emergency (ER) | payer OTHER ==
[~2019-08-10] VITALS: Ht 167.6 cm; Wt 109.1 kg
[~2019-08-10 21:39] MED LIST changes: +ADV250INH INH; +BENZ200C70 PO
[2019-08-10 22:45] VITALS: BP 129/77
--- NOTE | 2019-08-11 09:09 | REP ---
REASON: Pain after trauma. FINDINGS: The joint spaces are symmetric and relatively well maintained. There is no evidence of acute fracture or destructive osseous lesion. IMPRESSION: Negative. Electronically Signed by Best Guerra DO 08/11/2019 09:12 A
--- NOTE | 2019-08-11 09:13 | REP ---
REASON: Pain after trauma. ANKLE: COMPARISON: No priors. FINDINGS: No acute fracture or destructive osseous lesion. The mortise is intact. Electronically Signed by Best Guerra DO 08/11/2019 09:34 A
== END 2019-08-10 23:00 | disposition home or self-care (01) ==
LOC: M ED 21:39
DX: S90.02XA Contusion of left ankle, initial encounter (principal); S93.402A Sprain of unspecified ligament of left ankle, initial encounter; W22.8XXA Striking against or struck by other objects, initial encounter; Y92.9 Unspecified place or not applicable

== ENCOUNTER → 2019-12-12 | Outpatient (REF) | payer OTHER ==
[2019-12-12 16:29] LABS: INFLUENZA A AMPLIFICATION NEGATIVE (NEGATIVE); INFLUENZA B AMPLIFICATION NEGATIVE (NEGATIVE)
== END ==
LOC: M LAB REF 15:28
PROVIDERS: ATTEND Physician Assistant
DX: J11.1 Influenza due to unidentified influenza virus with other respiratory manifestations (principal)

== ENCOUNTER 2020-01-08 15:32 | Emergency (ER) | payer OTHER ==
[~2020-01-08] VITALS: Ht 167.6 cm; Wt 108.3 kg
[2020-01-08 16:08] LABS: BASO % 0.4 % (0.0-1.0); EOS # 0.1 10^3/uL (0.0-0.5); EOS % 0.5 % (0.0-3.0); HEMATOCRIT 40.9 % (36.0-47.0); HEMOGLOBIN 13.7 g/dl (12.0-15.5); LYMPH # 2.1 10^3/uL (1.5-5.0); LYMPH % 19.8 % (24.0-44.0); MEAN CORPUSCULAR HEMOGLOBIN 30.2 pg (27.0-33.0); MEAN CORPUSCULAR HGB CONC 33.5 g/dl (32.0-36.5); MEAN CORPUSCULAR VOLUME 90.1 fl (80.0-96.0); MONO # 0.7 10^3/uL (0.0-0.8); MONO % 6.1 % (0.0-5.0); NEUTROPHILS # 7.8 10^3/uL (1.5-8.5); NEUTROPHILS % 72.9 % (36.0-66.0); PLATELET COUNT, AUTOMATED 198 10^3/uL (150-450); RED BLOOD COUNT 4.54 10^6/uL (4.00-5.40); WHITE BLOOD COUNT 10.6 10^3/uL (4.0-10.0)
[2020-01-08 16:40] LABS: ALBUMIN 3.8 GM/DL (3.2-5.2); ALT/SGPT 25 U/L (12-78); BILIRUBIN,DIRECT < 0.1 MG/DL (0.0-0.2); BILIRUBIN,TOTAL 0.2 MG/DL (0.2-1.0); LIPASE 106 U/L (73-393); TOTAL PROTEIN 7.3 GM/DL (6.4-8.2)
[2020-01-08] MEDS ORDERED: ISOVUE-370 76% 100ML VIAL (Q9967) As Ordered ONE (18:07)
[2020-01-08] MEDS ORDERED: KETOROLAC 30 MG/ML VIAL (J1885) IV ONE (19:15)
--- NOTE | 2020-01-08 19:37 | REPVR ---
PROCEDURE INFORMATION: Exam: CT Abdomen And Pelvis With Contrast Exam date and time: 01/08/2020 5:17 PM Age: 34 years old Clinical indication: Abdominal pain; Localized; Lower; Additional info: Llq/rlq pain TECHNIQUE: Imaging protocol: Computed tomography of the abdomen and pelvis with intravenous contrast. Radiation optimization: All CT scans at this facility use at least one of these dose optimization techniques: automated exposure control; mA and/or kV adjustment per patient size (includes targeted exams where dose is matched to clinical indication); or iterative reconstruction. Contrast material: ISOVUE 370; Contrast volume: 100 ml; Contrast route: IV; COMPARISON: US PELVIC NON-OB COMPLETE 12/08/2013 10:19 PM FINDINGS: Lungs: Clear appearing lung bases. Heart: The heart is normal in size and there is no pericardial effusion. Liver: Normal appearing liver. Gallbladder and bile ducts: Normal common bile duct. The gallbladder is partially contracted. Pancreas: Normal pancreas. Spleen: Mild prominence of the spleen. Adrenals: Normal appearing adrenal glands. Kidneys and ureters: There is opacification of both kidneys. There is no evidence of hydronephrosis. Stomach and bowel: Secretions are noted throughout the small bowel with a few scattered air-fluid levels. Appendix: The cecum is in the right pelvis and the appendix appears within the range of normal. Intraperitoneal space: There is no evidence of pneumoperitoneum. No evidence of free fluid in the abdomen or pelvis. Vasculature: There is opacification of the aorta. Small lymph nodes are noted right and left groin. The aorta appears intact. Bladder: Normal urinary bladder. Reproductive: The uterus is bulbous. There is a 2 cm follicular cyst of the left ovary. Normal size right ovary. Bones/joints: Unremarkable. No acute fracture. Soft tissues: Unremarkable. IMPRESSION: 2.7 cm cyst left ovary, suggest correlation with ultrasound to exclude torsion. Electronically signed by: Ricky Zaman On 01/08/2020 19:37:07 PM
--- NOTE | 2020-01-08 21:22 | REPVR ---
PROCEDURE INFORMATION: Exam: US Pelvis Complete, Transabdominal and US Duplex Artery or Vein, Ovaries, Limited Exam date and time: 01/08/2020 8:38 PM Age: 34 years old Clinical indication: Abdominal pain; Left lower quadrant; Additional info: Left ovarian cyst on CT, ensure blood flow TECHNIQUE: Imaging protocol: Real-time transabdominal pelvic ultrasound with image documentation. Real-time duplex ultrasound scan of the arterial or venous flow of the ovaries with B-mode, color Doppler flow and spectral waveform analysis. Complete Pelvis, Limited Duplex. COMPARISON: CT ABD/PEL W/IV CONTRAST ONLY 01/08/2020 6:38 PM FINDINGS: Uterus/cervix: The anteverted uterus measures 10.7 x 6.2 x 6.9 cm. In the fundal myometrium is a fibroid measuring 3.5 x 3.6 x 3.7 cm. The endometrium measures 8 mm in thickness and contains small fluid. Right adnexa: The right ovary measures 3.2 x 2.3 x 1.9 cm and appears unremarkable. It demonstrates normal internal arterial flow. Peak systolic velocity 8.4 cm/s, end-diastolic velocity 4.0 cm/s, resistive index 0.52. Left adnexa: The left ovary measures 3.2 x 2.6 x 2.7 cm. It contains a 2.3 x 1.9 x 2.0 cm mildly complex cyst. It demonstrates normal internal arterial flow. Peak systolic velocity 10.0 cm/s, end-diastolic velocity 4.5 cm/s, resistive index 0.55. Free fluid: No significant free fluid is demonstrated in the pelvis. Bladder: Unremarkable as visualized. IMPRESSION: 1. 2.3 cm mildly complex left ovarian cyst. 2. Normal internal arterial flow to both ovaries. 3. 3.7 cm intramural fibroid. 4. Endometrium 8 mm in thickness and containing small fluid. Correlate with menstrual status. Electronically signed by: Eligio Garcia On 01/08/2020 21:21:45 PM
[2020-01-08 21:35] VITALS: BP 103/65
[2020-01-08] MEDS ORDERED: ACETAMINOPHEN 500 MG TAB PO ONE (21:45)
--- NOTE | 2020-01-12 14:29 | ED PDOC ---
Post-Departure Follow-Up pelvic us faxed to dr brown and vega quiroz for fu Lindsay Salvador MD Jan 12, 2020 14:29
== END 2020-01-08 21:52 | disposition home or self-care (01) ==
LOC: M ED 15:32
DX: N85.9 Noninflammatory disorder of uterus, unspecified (principal); D25.9 Leiomyoma of uterus, unspecified; N83.299 Other ovarian cyst, unspecified side; Z87.448 Personal history of other diseases of urinary system; K21.9 Gastro-esophageal reflux disease without esophagitis; J45.909 Unspecified asthma, uncomplicated; F41.9 Anxiety disorder, unspecified; F90.9 Attention-deficit hyperactivity disorder, unspecified type; F17.200 Nicotine dependence, unspecified, uncomplicated; F12.10 Cannabis abuse, uncomplicated
CPT/HCPCS: 74177; 76856; 80047; 80076; 81001; 83690; 84702; 85025; 96374; 99284; J1885; Q9967

== ENCOUNTER → 2020-01-18 | Outpatient (REF) | payer OTHER | LOC: M LAB REF 11:59 | PROVIDERS: ATTEND Physician Assistant Medical | DX: R53.83 Other fatigue (principal) | CPT/HCPCS: 87486; 87581; 87633; 87798; U0002 ==

== ENCOUNTER → 2020-09-29 | Outpatient (REF) | payer OTHER ==
[2020-09-29 21:36] LABS: APPEARANCE, URINE HAZY (CLEAR); BACTERIA, URINE AUTO NEGATIVE (NEGATIVE); BILIRUBIN, URINE AUTO NEGATIVE (NEGATIVE); BLOOD, URINE BLOOD 1+ (NEGATIVE); COLOR, URINE YELLOW (YELLOW); GLUCOSE, URINE (UA) AUTO NEGATIVE (NEGATIVE); KETONE, URINE AUTO TRACE mg/dL (NEGATIVE); LEUKOCYTE ESTERASE, URINE AUTO NEGATIVE (NEGATIVE); MUCUS, URINE SMALL (NEGATIVE); NITRITE, URINE AUTO NEGATIVE (NEGATIVE); PROTEIN, URINE AUTO 1+ mg/dL (NEGATIVE); RBC, URINE AUTO 1 /HPF (0-3); SPECIFIC GRAVITY URINE AUTO 1.031 (1.002-1.035); SQUAMOUS EPITHELIAL CELL UR AU 7 /HPF (0-6); UROBILINOGEN, URINE AUTO 0.2 mg/dL (0.0-2.0); WBC, URINE AUTO 2 /HPF (0-3)
== END ==
LOC: M LAB REF 21:20
PROVIDERS: ATTEND Physician Assistant Medical
DX: N39.0 Urinary tract infection, site not specified (principal)

== ENCOUNTER 2021-06-18 13:39 | Emergency (ER) | payer OTHER ==
[~2021-06-18] VITALS: Ht 167.6 cm; Wt 90.7 kg
[2021-06-18] MEDS ORDERED: ALBU8.5H (13:55)
[2021-06-18] MEDS ORDERED: LIDOCAINE 5% (LIDODERM) PATCH TD ONE (16:45)
[2021-06-18] MEDS ORDERED: diazePAM 10 MG TAB PO ONE (16:45)
[2021-06-18] MEDS ORDERED: KETOROLAC 30 MG/ML 1ML VIAL IV ONE (16:45)
[2021-06-18] MEDS ORDERED: KETOROLAC 60MG 2ML VIAL IM ONE (16:50)
--- NOTE | 2021-06-18 17:22 | REP ---
INDICATION: SOB, cough. COMPARISON: 08/04/2019 TECHNIQUE: Portable FINDINGS: The technique utilized in obtaining the radiograph has magnified the cardiac silhouette and accentuated the interstitial markings. The superior mediastinal structures are midline. The cardiac silhouette is unremarkable in size, shape, and position. The diaphragmatic surfaces of the lungs are regular, and the costophrenic angles are clear. The pulmonary de la cruz are clear. The imaged osseous structures are intact. IMPRESSION: There is no acute cardiopulmonary disease. <Electronically signed by Best Guerra > 06/18/21 [id number]
[2021-06-18 18:20] LABS: RSV AMPLIFICATION POSITIVE (NEGATIVE)
[2021-06-18] MEDS ORDERED: BREAMIS10 MC (18:39)
[2021-06-18] MEDS ORDERED: PROAAER10 INH (18:39)
[2021-06-18] MEDS ORDERED: PRED20TA PO (18:39)
[2021-06-18] MEDS ORDERED: ALBU83IN NEB (18:39)
[2021-06-18] MEDS ORDERED: METH-1165 PO (18:39)
[2021-06-18] MEDS ORDERED: CLEV1MIS25 XX (18:39)
[2021-06-18] MEDS ORDERED: ASPE4PAD TOP (18:39)
[2021-06-18] MEDS ORDERED: predniSONE 20 MG TAB PO ONE (18:45)
[2021-06-18 18:59] VITALS: BP 123/81
[2021-06-18] MEDS ORDERED: **NOTE PATIENT COMMENT** MISC XX SCH (21:00)
== END 2021-06-18 19:01 | disposition home or self-care (01) ==
LOC: M ED 13:39
DX: J21.0 Acute bronchiolitis due to respiratory syncytial virus (principal); R43.9 Unspecified disturbances of smell and taste; M54.5 Low back pain; J45.909 Unspecified asthma, uncomplicated; K21.9 Gastro-esophageal reflux disease without esophagitis; F17.200 Nicotine dependence, unspecified, uncomplicated; Z79.51 Long term (current) use of inhaled steroids; Z79.899 Other long term (current) drug therapy
CPT/HCPCS: 71045; 87631; 87880; 96372; 99283; J1885; J7512

== ENCOUNTER → 2022-05-12 | Outpatient (REF) ==
[~2022-05-12] MED LIST changes: +ALBU2.5V10 NEB; +ALBU8.5H; +ASPE4PAD TOP; +BREAMIS10 MC; +CLEV1MIS25 XX; +METH-1165 PO; +PRED20TA PO; +PROAAER10 INH
== END ==
LOC: M LAB 12:31
PROVIDERS: ATTEND Nurse Practitioner Family
DX: Z02.1 Encounter for pre-employment examination (principal)

== ENCOUNTER → 2023-04-08 | Outpatient (REF) | payer OTHER | LOC: M LAB REF 17:25 | PROVIDERS: ATTEND Physician Assistant | DX: J02.9 Acute pharyngitis, unspecified (principal) ==

== ENCOUNTER → 2024-05-21 | Outpatient (REF) | payer MEDICAID, OTHER, SELFPAY ==
[2024-05-21 15:20] LABS: Trichomonas vaginalis (AMP) NOT DETECTED (NEGATIVE)
[2024-05-21 15:44] LABS: GC DNA AMPLIFICATION NEGATIVE (NEGATIVE)
== END ==
LOC: M LAB REF 12:33
PROVIDERS: ATTEND Nurse Practitioner Family
DX: Z11.9 Encounter for screening for infectious and parasitic diseases, unspecified (principal)

== ENCOUNTER → 2024-05-21 | Outpatient (REF) | payer MEDICAID, OTHER, SELFPAY ==
[2024-05-21 18:09] LABS: BASO % 0.6 % (0.0-1.0); EOS % 0.3 % (0.0-3.0); HEMATOCRIT 45.5 % (36.0-47.0); LYMPH # 1.6 10^3/uL (1.5-5.0); LYMPH % 24.7 % (24.0-44.0); MEAN CORPUSCULAR HEMOGLOBIN 30.4 pg (27.0-33.0); MEAN CORPUSCULAR VOLUME 92.3 fl (80.0-96.0); MONO # 0.4 10^3/uL (0.0-0.8); MONO % 5.5 % (2.0-8.0); NEUTROPHILS # 4.5 10^3/uL (1.5-8.5); NEUTROPHILS % 68.6 % (36.0-66.0); PLATELET COUNT, AUTOMATED 205 10^3/uL (150-450); RED BLOOD COUNT 4.93 10^6/uL (4.00-5.40); WHITE BLOOD COUNT 6.6 10^3/uL (4.0-10.0)
[2024-05-21 18:45] LABS: TOTAL 25(OH) VITAMIN D 34.2 NG/ML (20.0-100.0)
[2024-05-21 18:46] LABS: THYROID STIMULATING HORMONE 1.306 uIU/ML (0.55-4.78)
[2024-05-21 18:49] LABS: HEMOGLOBIN A1c 5.1 % (4.0-6.0)
[2024-05-21 18:50] LABS: ALBUMIN 4.3 G/DL (3.2-5.2); ALKALINE PHOSPHATASE 73 U/L (46-116); ALT/SGPT 15 U/L (7.0-40); AST/SGOT 9 U/L (<34); BILIRUBIN,TOTAL 0.4 MG/DL (0.3-1.2); BLOOD UREA NITROGEN 11 MG/DL (9-23); CALCIUM LEVEL 9.5 MG/DL (8.5-10.1); CARBON DIOXIDE LEVEL 25 MMOL/L (20-31); CHLORIDE LEVEL 110 MMOL/L (98-107); CHOLESTEROL LEVEL 214 MG/DL (<200); CHOLESTEROL RISK RATIO 5.08 (<5); CREATININE FOR GFR 0.74 MG/DL (0.55-1.30); GLOMERULAR FILTRATION RATE > 60.0 (>58); GLUCOSE, FASTING 83 MG/DL (60-100); HDL CHOLESTEROL 42.1 MG/DL (>40); LDL CHOLESTEROL 147.3 MG/DL (<100); NON-HDL-C 171.9 MG/DL; POTASSIUM SERUM 4.4 MMOL/L (3.5-5.1); SODIUM LEVEL 141 MMOL/L (136-145); TOTAL PROTEIN 7.3 G/DL (5.7-8.2); TRIGLYCERIDES LEVEL 123 MG/DL (<150)
== END ==
LOC: M LAB REF 16:46
PROVIDERS: ATTEND Nurse Practitioner Family
DX: E66.3 Overweight (principal); E55.9 Vitamin D deficiency, unspecified; R53.83 Other fatigue; Z11.9 Encounter for screening for infectious and parasitic diseases, unspecified

== ENCOUNTER → 2024-06-06 | Outpatient (CLI) | payer OTHER, SELFPAY | LOC: M WHC 08:51 | PROVIDERS: ATTEND Nurse Practitioner Family | DX: Z12.31 Encounter for screening mammogram for malignant neoplasm of breast (principal) ==

== ENCOUNTER → 2024-11-06 | Outpatient (REF) | payer OTHER ==
[~2024-11-06] MED LIST changes: -ADV250INH INH; +ADVA1AER9 INH
== END ==
LOC: M LAB REF 11:56
PROVIDERS: ATTEND Physician Assistant
DX: B34.9 Viral infection, unspecified (principal)